=== PATIENT | female | born 1925 | race Caucasian/White ===

== ENCOUNTER 2017-01-14 22:20 | Emergency (ER) | payer MEDICARE, BC ==
[~2017-01-14] VITALS: Ht 160 cm; Wt 64.4 kg
--- NOTE | ~2017-01-14 | CR172 ---
[facility] A Service of [facility] & [facility] / [facility] RADIOLOGY TEXT RESULTS PATIENT: DIA HERNANDEZ LOCATION: [facility] : [birth year] UNIT #: [id number] AGE: [address]: Hakan Ward MD SEX: F ORDER DR: [id number] [facility] [address] [place], [place] [address] [id number] E MR#: [id number] Acc #: [id number] NAME: DIA HERNANDEZ : 1925 SEX: F STUDY DATE/TIME: 01/14/2017 23:05 UNIT: [facility] ROOM: STUDY DESCRIPTION: CR Knee 3 Views Lt Attending Physician: Hakan Ward M.D. Ordering Physician: Hakan Ward M.D. Primary Care Physician: No Primary Care Physician MEDICAL IMAGING REPORT This report is preliminary unless electronic signature is present EXAM Left knee series. INDICATIONS Left knee pain after a fall today. PROCEDURE Three views of the left knee. COMPARISON None. FINDINGS Mild tricompartmental arthrosis. There is no acute fracture, dislocation or joint effusion. IMPRESSION 1. No acute findings. 2. Mild tricompartmental arthrosis. Dictated by... Romario Harrison M.D. THIS IS AN ELECTRONICALLY VERIFIED REPORT Romario Harrison M.D. at 01/19/2017 8:57 AM ESPERANZA/keysha TD: 01/15/2017 10:02 JOB #: [id number] MEDICAL IMAGING REPORT Page 1 of 1 COPY
--- NOTE | ~2017-01-14 | CR132 ---
[facility] A Service of [facility] & [facility] RADIOLOGY TEXT RESULTS PATIENT: DIA HERNANDEZ LOCATION: [facility] : [birth year] UNIT #: [id number] AGE: [address]: Hakan Ward MD SEX: F ORDER DR: [id number] [facility] [address] [place], [place] [address] [id number] E MR#: [id number] Acc #: [id number] NAME: DIA HERNANDEZ : 1925 SEX: F STUDY DATE/TIME: 01/14/2017 23:09 UNIT: [facility] ROOM: STUDY DESCRIPTION: CR Forearm 2 View Lt Attending Physician: Hakan Wrad M.D. Ordering Physician: Hakan Ward M.D. Primary Care Physician: No Primary Care Physician MEDICAL IMAGING REPORT This report is preliminary unless electronic signature is present EXAM Left forearm series. INDICATIONS Left forearm pain after fall today. PROCEDURE 2 views of the left forearm. COMPARISON None. FINDINGS No acute fracture. Degenerative change in the left wrist. IMPRESSION 1. No acute bone findings. 2. Left wrist degenerative change. Dictated by... Romario Harrison M.D. THIS IS AN ELECTRONICALLY VERIFIED REPORT Romario Harrison M.D. at 01/19/2017 8:57 AM EEKaren/sisi TD: 01/15/2017 10:18 JOB #: [id number] MEDICAL IMAGING REPORT Page 1 of 1 COPY
== END 2017-01-15 01:23 | disposition home or self-care (01) ==
LOC: CED 22:20
DX: S51.812A Laceration without foreign body of left forearm, initial encounter (principal); I10 Essential (primary) hypertension; I48.91 Unspecified atrial fibrillation; I25.10 Atherosclerotic heart disease of native coronary artery without angina pectoris; Z88.0 Allergy status to penicillin; W01.0XXA Fall on same level from slipping, tripping and stumbling without subsequent striking against object, initial encounter; Z23 Encounter for immunization
CPT/HCPCS: 12004; 73090; 73562; 90471; 90715; 99283